=== PATIENT | female | born 1975 | race Caucasian/White ===

== ENCOUNTER → 2020-06-01 | Outpatient (CLI) | payer BC ==
[~2020-06-01] MED LIST: BYSTOLIC2.5 MG PO; CRESTOR5 MG PO; DULOXETINE HCL20 MG PO; FAMOTIDINE40 MG PO; LATANOPROST 0.7.5 ML EYEBOTH; NAPROXEN500 M1 PO; NORFLEX 100 MG100 MG PO; PATADAY2.5 ML EYELF; PREGABALIN50 MG PO; VITAMIN D21250 MCG PO
== END ==
LOC: LAB 10:53
DX: D89.89 Other specified disorders involving the immune mechanism, not elsewhere classified (principal); M25.50 Pain in unspecified joint; R76.8 Other specified abnormal immunological findings in serum; R53.83 Other fatigue; R53.1 Weakness
CPT/HCPCS: 36415; 82085; 82550; 82728

== ENCOUNTER → 2020-07-13 | Outpatient (CLI) | payer BC ==
[2020-07-13 10:29] LABS: HEMOGLOBIN 11.8 gm/dl (12.3-15.3); RED BLOOD COUNT 4.79 M/UL (4.00-5.10); WHITE BLOOD COUNT 7.3 K/UL (4.5-11.0)
== END ==
LOC: OPSV2 09:00
PROVIDERS: Obstetrics & Gynecology
DX: Z01.818 Encounter for other preprocedural examination (principal); N92.1 Excessive and frequent menstruation with irregular cycle
CPT/HCPCS: 36415; 81001; 85025; 93005

== ENCOUNTER → 2020-07-20 | Day surgery (SDC) | payer BC | END | disposition home or self-care (01) | LOC: OR 06:28 | PROVIDERS: Obstetrics & Gynecology | PROC: 0UDB8ZZ Extraction of Endometrium, Via Natural or Artificial Opening Endoscopic (ICD-10-PCS; principal; 2020-07-20 07:30) | DX: N80.0 Endometriosis of uterus (principal); I10 Essential (primary) hypertension; I49.3 Ventricular premature depolarization; E78.5 Hyperlipidemia, unspecified; K21.9 Gastro-esophageal reflux disease without esophagitis; Z20.822 Contact with and (suspected) exposure to COVID-19; Z91.040 Latex allergy status; Z91.018 Allergy to other foods; Z88.8 Allergy status to other drugs, medicaments and biological substances; Z79.899 Other long term (current) drug therapy | CPT/HCPCS: 84703; J0690; J1885; J2001; J2250; J2405; J2704; J3010; J7030; J7120 ==